=== PATIENT | male | born 1965 | race Caucasian/White ===

== ENCOUNTER 2019-05-21 07:56 | Day surgery (SDC) | payer BC ==
[2019-05-15 12:32] LABS: Potassium 4.1 mmol/L (3.5-5.1)
[2019-05-15 12:57] LABS: Absolute Lymphocytes (CBC) 1.4 K/uL (0.7-4.9); Basophils % 0.5 % (0-1.3); Hematocrit 45.5 % (39.6-49.0); Lymphocytes % 24.3 % (15.3-44.8); MPV 8.8 fL (7.6-11.3); RBC Red Blood Cell Count 4.85 M/uL (4.33-5.43)
--- NOTE | 2019-05-16 07:56 | EKG ---
Test Date: 2019-05-15 Test Time: 10:42:52 Java Technical Architect: EDMAR MEASUREMENT RESULTS: Intervals: Rate: 52 WA: 174 QRSD: 90 QT: 436 QTc: 405 Deshler: P: 71 WA: 174 QRS: 60 T: 57 INTERPRETIVE STATEMENTS: Sinus bradycardia Possible Left atrial enlargement Borderline ECG No previous ECG available for comparison Electronically Signed On 05-16-19 07:56:14 ASSISTANT QUALITY MANAGER by Walter Spaulding
--- OUTSIDE RECORDS SUMMARY | 2019-05-21 07:59 | XMS REPORT | Summary of Care ---
:1965 Author Name Allie Mcadams M.A. Address Unavailable Unavailable , Care Team Providers Name Role Phone LUCERO Mercado, TIFFANIE Unavailable Unavailable WANDY MENSAH MD Unavailable Unavailable TIFFANIE MILLAN MD Unavailable Unavailable Unavailable Unavailable Unavailable Functional Status Name Dates Details Functional status health issues are not documented Status: Name Dates Details Cognitive status health issues are not documented Status: Problems Name Dates Details Closed bimalleolar fracture of left ankle, initial encounter (824.4, S82.842A) Status: Active Sprain of tibiofibular ligament of left ankle, initial encounter (845.03, S93.432A) Status: Active Medications Name Dates Details Aspirin 325 MG Oral Tablet TAKE 1 TABLET TWICE DAILY. Quantity: 20 Refills: 0 TIFFANIE BARKER M.D. Start : 20-Oct-2017 Active Ondansetron HCl - 4 MG Oral Tablet TAKE 1 TABLET EVERY 6 HOURS PRN nausea Quantity: 20 Refills: 0 TIFFANIE BARKER M.D. Start : 20-Oct-2017 Active Allergies and Adverse Reactions Name Dates Details No Known Drug Allergies (Allergy) Status: Active Procedures Procedure Dates Details Procedures not documented Immunization Name Dates Details Immunizations not documented Social History Name Dates Details Unknown if ever smoked Vital Signs Date Test Result Details No Known Vitals to report Results Date Description Value Details [id number] [U] XRAY ANKLE MIN 3 VWS LEFT [id number] XR ANKLE MIN 3 VWS LEFT Images acquired, not reported on this accession number. Plan of Care Name Dates Details Planned Observations Planned Goals not documented Planned Encounters Appointment; TIFFANIE BARKER M.D. On: 27-Oct-2017 16:00 Instructions Name Dates Details Instructions not documented Encounters Appointment; TIFFANIE BARKER M.D. On: 17-Oct-2017 11:45 Encounter Diagnosis: Problem not documented Appointment; TIFFANIE BARKER M.D. On: 20-Oct-2017 14:00 Encounter Diagnosis: Problem not documented Appointment; TIFFANIE BARKER M.D. On: 21-Oct-2017 9:00 Encounter Diagnosis: Problem not documented
[2019-05-21] MEDS ORDERED: CEFAZOLIN/SWI 1gm 1 GM/10 ML SYR ONE (08:26)
[2019-05-21] MEDS ORDERED: MIDAZOLAM HCL 2 MG/2 ML INJ ONE (08:28)
[2019-05-21] MEDS ORDERED: LIDOCAINE 2% MPF 5 ML VIAL ONE (08:28)
[2019-05-21] MEDS ORDERED: ONDANSETRON 4 MG/2 ML VIAL ONE (08:28)
[2019-05-21] MEDS ORDERED: propofoL 200 MG/20 ML VIAL IV ONE ×2 (08:28→09:20)
[2019-05-21] MEDS ORDERED: FENTANYL CITR 100 MCG/2 ML ONE (08:28)
[2019-05-21] MEDS ORDERED: BUPIVACAINE 0.5% PF 10 ML VIAL ONE (08:43)
[2019-05-21] MEDS: Ringers Lactate 1,000 ML IV ONE ×2 (08:55→09:00)
[2019-05-21] MEDS ORDERED: EPHEDRINE SULF 50 MG/ML VIAL ONE (09:23)
[2019-05-21 13:05] VITALS: BP 115/67; TEMP 98.4; O2SAT 97
--- NOTE | 2019-05-21 20:57 | OP ---
Date of Procedure: 05/21/2019 Surgeon: Maycol Storey MD Preoperative Diagnosis: Right back mass. Postoperative Diagnosis: Right back mass. Procedure: Wide excision of right back mass, 5 x 3 cm, with layered closure. Estimated Blood Loss: Minimal. Estimated Blood Loss: Minimal. Specimen: Right back mass. Findings: Sebaceous cyst. Anesthesia: MAC. Complications: None. Disposition: Patient tolerated the procedure in stable condition and taken to Recovery in good gener al condition. Operative Note: Patient was brought to the OR and placed in supine position. MAC anesthesia begun. Patient placed in the left lateral position, prepped and draped in usual sterile fashion. Marcaine 0.5% was infiltrated locally. 15 blade was used to make a 5 x 3 cm incision. Subcutaneous tissue wa s divided. Cysts and content identified and excised and sent to Pathology. Frozen section revealed a sebaceous cyst. Wound irrigated. Bleeding was controlled with cautery, and then flaps created. 2 -0 chromic and 3-0 chromic used to approximate the subcutaneous tissue and 3-0 nylon used to reapprox imate and close the skin. Sterile dressing was applied. Patient was awakened and taken to Recovery in good general condition. Discharge Note: Patient will go to Day Surgery, then home when stable. Disposition: Home. Condition: Stable. Discharge Instructions: Resume home medications and diet. Activity as tolerated. No heavy lifting. Remove outer dressing in 2 days. Shower. Keep wound clean and dry. Tylenol No. 3 one tablet p.o. q.4 p.r.n. pain. Keflex 500 mg p.o. q.6. Followup in my office in 10 days, call for appointment. BOBBY/MODL Voice ID: [id number] Report ID: [id number]
== END 2019-05-21 10:27 | disposition home or self-care (01) ==
LOC: OR 07:56
PROVIDERS: ATTEND Surgery
PROC: 0JB70ZZ Excision of Back Subcutaneous Tissue and Fascia, Open Approach (ICD-10-PCS; principal; 2019-05-21 09:00)
DX: L72.3 Sebaceous cyst (principal); I10 Essential (primary) hypertension
CPT/HCPCS: 93005; 85025; 80048; 36415; 88304; 11406; J2704 ×2; J2250; J3010; J0690; J7120; J2405; 88305